=== PATIENT | male | born 1935 | race Two or more races ===

== ENCOUNTER → 2016-05-15 | Outpatient (CLI) | payer OTHER ==
[~2016-05-15] MED LIST: ASPI-231 PO; ATOR40TA52 PO; CYAN1TAB14 PO; IRBE75TA11 PO; LEVO50TA7 PO; METF-316 PO; METO25TA62 PO; MOME0.1C32 EX; NITR0.4S29 SL; TAMS0.4C36 PO
[2016-05-15 12:32] LABS: Urine RBC None Seen /hpf (0 - 3)
[2016-05-15 12:48] LABS: Basophils # (auto) 0 uL; Basophils % (auto) 0.5 % (0.0-2.0); Eosinophils # (auto) 0.2 uL; Eosinophils % (auto) 2.3 % (0.0-7.0); Hematocrit 38.2 % (41.0-53.0); Hemoglobin 12.9 g/dL (13.5-17.5); Lymphocytes # (auto) 1.5 uL; Lymphocytes % (auto) 23.4 % (10.0-50.0); Mean Corpuscular Hemoglobin 33.6 pg (28.0-32.0); Mean Corpuscular Hgb Conc. 33.8 g/dL (32.0-36.0); Mean Corpuscular Volume 99.5 fL (80.0-100.0); Mean Platelet Volume 8.4 fL (7.4-10.4); Monocytes # (auto) 0.8 uL; Monocytes % (auto) 12.2 % (0.0-12.0); Neutrophils % (auto) 61.6 % (37.0-80.0); Platelet Count (auto) 242 10^3/uL (140-450); White Blood Cell 6.5 10^3/uL (4.4-10.8)
[2016-05-15 12:53] LABS: Urine Bilirubin Negative (Negative); Urine Blood Negative /uL (Negative); Urine Color Yellow (Yellow); Urine Ketone Negative (Negative); Urine Nitrite Negative (Negative); Urine Urobilinogen Normal (Negative)
[2016-05-15 12:54] LABS: Urine Glucose 2+ mg/dL (Normal)
[2016-05-15 13:13] LABS: Albumin 3.8 g/dL (3.4-5.0); BUN/Creatinine Ratio 24.2; Bilirubin, Total 0.6 mg/dL (0.2-1.0); Calcium 9.2 mg/dL (8.5-10.1); Potassium 4.8 mmol/L (3.5-5.1); Total Protein 7.2 g/dL (6.4-8.2)
[2016-05-15 13:32] LABS: Partial Thromboplastin Time 23.8 sec (22.64-33.71)
[2016-05-15 13:49] LABS: INR 0.99 (0.9-1.15); Prothrombin Time 10.4 sec (9.37-12.3)
== END | disposition home or self-care (01) ==
LOC: LAB 11:16
PROVIDERS: ATTEND Urology
DX: Z01.812 Encounter for preprocedural laboratory examination (principal)
CPT/HCPCS: 36415; 80053; 81001; 85025; 85610; 85730; 86850; 86900; 86901

== ENCOUNTER → 2016-05-18 | Day surgery (SDC) | payer OTHER ==
[~2016-05-18] VITALS: Ht 162.6 cm; Wt 72.6 kg
[2016-05-18 07:00] VITALS: BP 134/63
== END | disposition home or self-care (01) ==
LOC: SUR 06:51
PROVIDERS: ATTEND Urology
DX: Z53.9 Procedure and treatment not carried out, unspecified reason (principal); E11.9 Type 2 diabetes mellitus without complications; C61 Malignant neoplasm of prostate; I11.0 Hypertensive heart disease with heart failure
CPT/HCPCS: 82962; 93306